=== PATIENT | female | born 1970 | race Caucasian/White ===

== ENCOUNTER 2017-10-07 13:54 | Emergency (ER) | payer OTHER ==
[~2017-10-07] VITALS: Ht 165.1 cm; Wt 68.0 kg
[2017-10-07 15:07] VITALS: BP 112/69
== END 2017-10-07 15:35 | disposition home or self-care (01) ==
LOC: ER 13:54
DX: T59.91XA Toxic effect of unspecified gases, fumes and vapors, accidental (unintentional), initial encounter (principal); Y92.89 Other specified places as the place of occurrence of the external cause; Z98.51 Tubal ligation status